=== PATIENT | male | born 1950 | race American Indian/Alaskan Native ===

== ENCOUNTER 2018-08-03 13:22 | Outpatient (CLI) | payer MEDICARE, OTHER ==
--- NOTE | 2018-08-03 15:04 | XRay Report ---
CHEST TWO VIEWS: 08/03/18 13:22:00 CLINICAL: Sarcoidosis. COMPARISON: 10/01/09 FINDINGS: Normal heart and pulmonary vasculature.Bilateral perihilar infiltrates and linear scarring which are more pronounced than on the prior exam. Prominent right paratracheal lymph node but overall decreased mediastinal and hilar adenopathy compared to the prior exam. No pleural effusion. Degenerative changes in the spine. 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
--- NOTE | 2018-08-03 15:30 | XRay Report ---
XRAY LUMBAR SPINE THREE VIEWS: 08/03/18 13:22:00 CLINICAL: Hip pain/sciatica. FINDINGS: Mild anterior wedging of the L1 vertebral body with no fracture line identified. A large anterior osteophyte at T12-L1. Normal vertebral body height, alignment and disk spaces L2-L5. Mild spondylosis with small lateral osteophytes. The pedicles are intact. Lower lumbar facet joint sclerosis. Normal soft tissues. IMPRESSION: 1. Chronic mild L1 anterior wedge compression fracture and T12-L1 degenerative disc disease. 2. Mild spondylosis and mild to moderate lower lumbar facet joint arthropathy.
--- NOTE | 2018-08-03 16:14 | XRay Report ---
XRAY BILATERAL HIPS AND AP PELVIS THREE VIEWS: 08/03/18 CLINICAL: Hip pain/sciatica FINDINGS: Right: No fracture or dislocation. Moderate osteoarthritis with narrowing of the superolateral joint space, superolateral acetabular eburnation and a small superolateral osteophyte. Slight increased density of the femoral head but normal femoral head contour. Questionable subchondral femoral geodes. Normal soft tissues. Left: No fracture or dislocation. Moderate osteoarthritis with narrowing of the superolateral joint space, superolateral acetabular eburnation and a superolateral osteophyte. Slight increased femoral head density is normal femoral head contour. Normal soft tissues. The pelvic bones are intact.Normal SI joints. Pelvic phleboliths. IMPRESSION: Moderate bilateral hip osteoarthritis.Increased density of the femoral head suggests possible avascular necrosis. Consider MRI for further evaluation.
== END 2018-08-03 13:23 | disposition home or self-care (01) ==
LOC: SPVIMAG 13:22
DX: S32.010A Wedge compression fracture of first lumbar vertebra, initial encounter for closed fracture (principal); M51.35 Other intervertebral disc degeneration, thoracolumbar region; M47.896 Other spondylosis, lumbar region; M16.0 Bilateral primary osteoarthritis of hip; M25.78 Osteophyte, vertebrae; D86.0 Sarcoidosis of lung; X58.XXXA Exposure to other specified factors, initial encounter; Y93.89 Activity, other specified; Y92.89 Other specified places as the place of occurrence of the external cause; Y99.8 Other external cause status
CPT/HCPCS: 71046; 72100; 73521